=== PATIENT | male | born 1985 | race African-American/Black ===

== ENCOUNTER 2016-07-30 23:52 | Emergency (ER) | payer OTHER ==
[2016-07-31 00:41] LABS: ABSOLUTE BASOPHIL COUNT 0 /CUMM (0.0-0.2); ABSOLUTE EOSINOPHIL COUNT 0.1 /CUMM (0.0-0.7); ABSOLUTE LYMPH COUNT 1.1 /CUMM (1.2-3.4); HEMATOCRIT 44.8 % (42-52); MEAN CORPUSCULAR VOLUME 91.9 FL (80.0-94.0); RBC DISTRIBUTION WIDTH 12.1 % (11.5-14.5)
[2016-07-31 00:43] LABS: ABSOLUTE GRANULOCYTE CT 4.9 /CUMM (1.4-6.5); ABSOLUTE MONOCYTE COUNT 0.4 /CUMM (0.10-0.60); BASOPHIL % 0.4 % (0.0-2.0); GRANULOCYTE % 75.9 % (42.2-75.2); MEAN CORPUSCULAR HGB 30.8 PG (27.0-31.0); MEAN CORPUSCULAR HGB CONC 33.6 G/DL (33.0-37.0); MEAN PLATELET VOLUME 7.6 FL (7.4-10.4); PLATELET COUNT 297 /CUMM (130-400); RED BLOOD CELL CT 4.88 /CUMM (4.70-6.10); WHITE BLOOD CELL COUNT 6.4 /CUMM (4.8-10.8)
--- NOTE | 2016-07-31 01:00 | ED PSYCHIATRIC COMPLAINT ---
History of Present Illness General Chief Complaint: Psychiatric Related Complaint Stated Complaint: +SI BROUGHT IN BY LOCAL POLICE Source: patient, old records, EMS, police Exam Limitations: clinical condition, intoxication Vital Signs & Intake/Output Vital Signs & Intake/Output Vital Signs Date Time Temp Pulse Resp B/P Pulse O2 O2 Flow FiO2 Ox Delivery Rate 07/31 1208 96.2 74 16 153/93 100 Room Air 07/31 0945 170/100 07/31 0737 97.2 83 18 169/109 97 Room Air 07/31 0633 97.1 67 16 154/98 98 Room Air Room Air 07/31 0100 Room Air 07/31 0010 95.4 99 18 174/93 100 Room Air Triage Note: TRIAGE: BIBA W/ [place] PD ON PD PAPER FOR +SI W/ THREATS OF SI TO FAMILY, PATIENT HAS ACCESS TO A GUN. +ETOH W/ HX ALCOHOLISM. NOT ANSWERING QUESTIONS FOR EMS ASSESSMENT. PER PD, PATIENT STATED "I'M GOING TO BLOW MY HEAD OFF," AND COUSIN REMOVED GUN FROM PATIENT'S HANDS AND TACKLED PATIENT TO COUCH. PATIENT TO ROOM, BEING WANDED BY SECURITY AND CHANGING INTO SCRUBS AT THIS TIME. Triage Nurses Notes Reviewed? yes Onset: Just prior to arrival Duration: minute(s):, constant, continues in ED Timing: recent history Severity: severe Associated Symptoms: impaired concentration, suicidal ideation HPI: Prior to admission patient was drinking at a bar returned home with cousin and threatened to kill himself with a gun brought in by police on [place]. They report he has threatened this in the past. Patient denies fever chills nausea vomiting diarrhea abdominal pain chest pain shortness of breath headache dysuria rash bleeding suicidal ideation homicidal ideation hallucination. (CAROLYNN ALMENDAREZ,MATT) Allergies Coded Allergies: NO KNOWN ALLERGIES (07/29/13) (KYLE WATERS DO) Past History Travel History Traveled to [place] past 21 day No Medical History Any Pertinent Medical History? 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 No (MATT PRADHAN MD) Review of Systems Review of Systems Constitutional: Reports: no symptoms. EENTM: Reports: no symptoms. Respiratory: Reports: no symptoms. Cardiovascular: Reports: no symptoms. GI: Reports: no symptoms. Genitourinary: Reports: no symptoms. Musculoskeletal: Reports: no symptoms. Skin: Reports: no symptoms. Neurological/Psychological: Reports: see HPI, anxiety, confusion. Hematologic/Endocrine: Reports: no symptoms. Immunologic/Allergic: Reports: no symptoms. All Other Systems: Reviewed and Negative (MATT PRADHAN MD) Physical Exam Physical Exam General Appearance: well developed/nourished, alert, awake, anxious, moderate distress Head: atraumatic, normal appearance Eyes: Bilateral: normal appearance, PERRL, EOMI. Ears, Nose, Throat: normal pharynx, normal ENT inspection, hearing grossly normal Neck: normal inspection, supple, full range of motion Respiratory: normal breath sounds Cardiovascular: regular rate/rhythm Gastrointestinal: soft, non-tender Extremities: normal range of motion Neurological/Psychiatric: no motor/sensory deficits, awake, agitated, alert, anxious, filter tank tender II-XII nml as tested Appearance/Memory/Insight: denies illness, impaired insight Behavoir/Eye Contact/Speech: belligerent, uncooperative, threatening eye contact Thoughts/Hallucinations: no apparent hallucination Skin: intact, normal color, warm/dry SAD PERSONS SAD PERSONS Response Value Male Sex? yes 1 Depression/Hopelessness? yes 2 Previous Attempts/Psych Care yes 1 Excessive Ethanol/Drug Use? yes 1 Rational Thinking Loss? yes 2 Single//? yes 1 Organized/Serious Attempt yes 2 Social Support? has support 0 Total 10 SAD PERSONS Done? yes (MATT PRADHAN MD) Progress Differential Diagnosis: drug intoxication, drug overdose, drug withdrawal, electrolyte abnormality, hypoglycemia Plan of Care: Orders Procedure Date/time Status Regular Diet 07/31 B Active Continuous Observation Monitor 07/31 0415 Active Continuous Observation Monitor 07/31 002 Active ED CRISIS PSYCH CONSULT 07/31 002 Active URINE DRUG SCREEN FOR ER ONLY 07/30 2358 Complete ETHANOL 07/30 2358 Complete COMPREHENSIVE METABOLIC PANEL 07/30 235 Complete CBC WITHOUT DIFFERENTIAL 07/30 2357 Complete Laboratory Tests 07/31/16 0241: Urine Opiates Screen < 100.00, Methadone Screen < 40, Barbiturate Screen < 60, Ur Phencyclidine Scrn < 6.00, Amphetamines Screen < 100, U Benzodiazepines Scrn < 85, Urine Cocaine Screen < 50, Urine Cannabis Screen 12.00 07/31/16 0033: Anion Gap 15, Estimated GFR > 60, BUN/Creatinine Ratio 12.0, Glucose 103 H, Calcium 10.1, Total Bilirubin 0.6, AST 31, ALT 30, Alkaline Phosphatase 94, Total Protein 8.8 H, Albumin 5.2 H, Globulin 3.6, Albumin/Globulin Ratio 1.4, CBC w Diff NO MAN DIFF REQ, RBC 4.88, MCV 91.9, MCH 30.8, RDW 12.1, MPV 7.6, Gran % 75.9 H, Lymphocytes % 16.9 L, Monocytes % 5.8, Eosinophils % 1.0, Basophils % 0.4, Absolute Granulocytes 4.9, Absolute Lymphocytes 1.1 L, Absolute Monocytes 0.4, Absolute Eosinophils 0.1, Absolute Basophils 0, PUBS MCHC 33.6, Serum Alcohol 293.0 7:24 AM PATIENT SIGNED OUT TO ME BY DR PRADHAN. PENDING CRISIS EVALUATION. 1:10 pm Patient cleared by Ralph from crisis for discharge home. (RADHA ALEXANDER MD) Hand-Off Endorsed To: KYLE WATERS DO Endorsed Time: 0700 Pending: consult (MATT PRADHAN MD) Departure Departure Condition: Stable Referrals: PATIENT HAS NO PRIMARY CARE DR (PCP/Family) Departure Forms: Customer Survey General Discharge Information (MATT PRADHAN MD) Departure Time of Disposition: 1307 Disposition: HOME OR SELF CARE Clinical Impression Primary Impression: Alcohol use disorder Additional Instructions: Follow up with IOP as directed by Ralph from crisis. Return to the ER for any changing or worsening symptoms. (RADHA ALEXANDER MD)
--- NOTE | 2016-07-31 09:55 | ED PSYCH CRISIS CONSULTATION ---
Crisis Consult Basic Assessment Date of Consult: 07/31/16 Responsible Person/Accompanied By: alex Rashidsin Insurance Authorization: Insurance #1: Insurance name: SELF-PAY Phone number: Policy number: Group number: Authorization number: ED Provider: Patient's ED Provider: MATT PRADHAN MD Primary Care Physician: Patient's PCP: PATIENT HAS NO PRIMARY CARE DR PCP's Phone Number: Current Psychiatrist: none Chief Complaint: Psychiatric Related "just was drunk. Showing Patient's Quote: "I did have my gun,and I was showing off" Present Illness: 31 year old unmarried black male who states that he is from [place], where his family lives, and that he has been staying with cousin in [place]. Patient was brought into [place] on a police paper after his cousin or female they met at [facility] called police to report that patient had threatened "to blow head off". This morning patient has started off by being very evasive, and stating that "I was just showing off". BAL was 295 at approximaetly 1:00 a.m., and he was breathalized at over 100 at 940 a.m. He has been vague. States he had dentist appointment, so he needed to leave for 11 a.m., but when asked the dentist's name so we could call, he said he could not remember. Patient was very uncooperative last night, and refused to provide any information at registration. 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 Patient reports never having any psychiatric treatment or issues; however he does admit to drinking about 2 times per week, and rationaizes that he can drink more if he is not driving, and knows he drinks too much at that point. Last night was an example of this. Patient states that he does have a gun, and used bro shoot it at the range in [place], but has not done so for years now. "the gun is not and was not loaded". Patient's good friend Mike Magallon called as collateral and reports that he has known Antwan (patient) for 20 years and had nothing but positive things to say. He stated he has good job and does not miss work, and has never shown any emotional problems. Mike states that he does drink too much about 2 days per week. Patient did have a DUI about 4 months ago, and, at this point he is on probation. Patient is fully alert and oriented x 3 and cooperative this morning. Patient is very interested in IOP, and does agree he needs to work on his drinking. Patient knows needs to address alcohol abuse, and wants to go to our IOP. Never any S.I. thoughts ever. No thoughts of hurting others. No psych history Patient's Address: [address] [place] [address] Other Who Do You Live With? Friend Family/Informants Interviewed: Mike, very good friend Allergies - Coded Allergies: NO KNOWN ALLERGIES (07/29/13) Laboratory Results: Laboratory Tests 07/31/16 0241: Urine Opiates Screen < 100.00, Methadone Screen < 40, Barbiturate Screen < 60, Ur Phencyclidine Scrn < 6.00, Amphetamines Screen < 100, U Benzodiazepines Scrn < 85, Urine Cocaine Screen < 50, Urine Cannabis Screen 12.00 07/31/16 0033: Anion Gap 15, Estimated GFR > 60, BUN/Creatinine Ratio 12.0, Glucose 103 H, Calcium 10.1, Total Bilirubin 0.6, AST 31, ALT 30, Alkaline Phosphatase 94, Total Protein 8.8 H, Albumin 5.2 H, Globulin 3.6, Albumin/Globulin Ratio 1.4, CBC w Diff NO MAN DIFF REQ, RBC 4.88, MCV 91.9, MCH 30.8, RDW 12.1, MPV 7.6, Gran % 75.9 H, Lymphocytes % 16.9 L, Monocytes % 5.8, Eosinophils % 1.0, Basophils % 0.4, Absolute Granulocytes 4.9, Absolute Lymphocytes 1.1 L, Absolute Monocytes 0.4, Absolute Eosinophils 0.1, Absolute Basophils 0, PUBS MCHC 33.6, Serum Alcohol 293.0 Past History Past Medical History Neurological: NONE EENT: NONE Cardiovascular: NONE Respiratory: NONE Gastrointestinal: NONE Hepatic: NONE Renal: NONE Musculoskeletal: NONE Psychiatric: PTSD Endocrine: NONE Blood Disorders: NONE Cancer(s): NONE 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 Substance Abuse Treatment Substance Abuse Treatment Past Substance Abuse [place] No Comments: agrees needs tx now Current Mental Status Mental Status Orientation: Person, Place, Situation Affect: WNL Speech: WNL Neuro-vegetative: WNL Appearance Appearance- Dress/Hygiene: well gromed Behaviors Thought Process: WNL Thought Content: WNL Memory: WNL Insight: WNL SI/HI Risk Assessment Past Suicidal Ideation/Attempts No Current Suicidal Ideation/Att No Past Homicidal Ideation/Att: No Current Homicidal Ideation/Attempts No Degree of Intent: None Risk Factors: substance abuse, male Lethality Ratin (mild) PTSD Checklist PTSD Done? patient declined ED Management Sitter: Yes Restraints: No DSM5/PS Stressors/Medical Prob Diagnosis' (DSM 5, Stressors, Medical): Alcohol Use disorder, moderate F10.20 Current GAF: 42 Comments: Patient had had unloded gun that made roommates g.f. nervous. Police called and gun was confiscated and is in police custody. it would be difficult for pt to get gun back per police department. Departure Disposition Psych Medical Clearance Date: 07/31/16 Medically Cleared at: 0945 Time Started: 0950 Time Ended: 1040 Psychiatrist Consulted: Ritu Mckenzie MD Date Disposition Established: 07/31/16 Plan for Disposition - Modality: IOP Facility: [facility] Follow-up Appt Date: 08/05/16 Follow-Up Appt Time: 1515 Rationale for Disposition: patient wants treatment for alc abuse disorder Referrals PATIENT HAS NO PRIMARY CARE DR (PCP/Family)
[2016-07-31 12:08] VITALS: BP 153/93
== END 2016-07-31 13:18 ==
LOC: ERH 23:52
PROVIDERS: Emergency Medicine
DX: F10.20 Alcohol dependence, uncomplicated (principal)
CPT/HCPCS: 80307; G0463; G0480